=== PATIENT | male | born 1940 | race Caucasian/White ===

== ENCOUNTER → 2016-05-21 | Outpatient (CLI) | payer BC ==
[~2016-05-21] MED LIST: MULT-506 PO
== END | disposition home or self-care (01) ==
LOC: C.LAB 14:57
PROVIDERS: ATTEND Internal Medicine Geriatric Medicine
DX: R94.6 Abnormal results of thyroid function studies (principal)

== ENCOUNTER → 2016-07-21 | Outpatient (CLI) | payer BC ==
[2016-07-21 10:33] LABS: ESTIMATED AVERAGE GLUCOSE 146 mg/dl; HA1C FLAG Normal (Normal)
[2016-07-21 10:36] LABS: BLOOD UREA NITROGEN 17 mg/dl (7-18); BUN/CREATININE RATIO 15.4 (10-20); CARBON DIOXIDE 31 mmol/L (21-32); CHLORIDE 106 mmol/L (98-107); CHOLESTEROL 195 mg/dl (0-200); GLUCOSE 129 mg/dl (70-99); POTASSIUM 4.2 mmol/L (3.5-5.1); SODIUM 141 mmol/L (136-145)
[2016-07-21 11:09] LABS: CHOLESTEROL/HDL RATIO 4.5; HDL CHOLESTEROL 43 mg/dl; LDL CHOLESTEROL CALCULATED 127 mg/dl; TRIGLYCERIDES 126 mg/dl (0-150); VERY LOW DENSITY LIPOPROT CALC 25 mg/dl
== END | disposition home or self-care (01) ==
LOC: C.LAB 09:32
PROVIDERS: ATTEND Internal Medicine Geriatric Medicine
DX: E78.5 Hyperlipidemia, unspecified (principal); R73.9 Hyperglycemia, unspecified

== ENCOUNTER → 2017-02-02 | Outpatient (CLI) | payer BC ==
[2017-02-02 12:38] LABS: ALB/GLOB RATIO 0.9 (0.9-2); ALT/SGPT 29 U/L (12-78); BLOOD UREA NITROGEN 16 mg/dl (7-18); BUN/CREATININE RATIO 15.4 (10-20); CALCIUM 9.1 mg/dl (8.5-10.1); CARBON DIOXIDE 29 mmol/L (21-32); CHLORIDE 108 mmol/L (98-107); CHOLESTEROL 130 mg/dl (0-200); CREATININE 1.06 mg/dl (0.60-1.40); GLUCOSE 121 mg/dl (70-99); POTASSIUM 4.3 mmol/L (3.5-5.1); SODIUM 141 mmol/L (136-145); TRIGLYCERIDES 150 mg/dl (0-150); VERY LOW DENSITY LIPOPROT CALC 30 mg/dl
[2017-02-02 12:45] LABS: ALKALINE PHOSPHATASE 77 U/L (45-117); AST/SGOT 18 U/L (15-37); CHOLESTEROL/HDL RATIO 2.5; HDL CHOLESTEROL 51 mg/dl; LDL CHOLESTEROL CALCULATED 49 mg/dl
[2017-02-02 13:49] LABS: ESTIMATED AVERAGE GLUCOSE 151 mg/dl; HA1C FLAG Normal (Normal)
== END | disposition home or self-care (01) ==
LOC: C.LAB 09:48
PROVIDERS: ATTEND Internal Medicine Geriatric Medicine
DX: E78.5 Hyperlipidemia, unspecified (principal); E11.9 Type 2 diabetes mellitus without complications; R94.6 Abnormal results of thyroid function studies

== ENCOUNTER → 2017-08-11 | Outpatient (CLI) | payer BC ==
[2017-08-11 09:58] LABS: HEMOGLOBIN A1C 7.5 % (4.5-5.6)
[2017-08-11 10:10] LABS: BLOOD UREA NITROGEN 20 mg/dl (7-18); CALCIUM 9.1 mg/dl (8.5-10.1); CARBON DIOXIDE 30 mmol/L (21-32); CREATININE 1.22 mg/dl (0.60-1.40); GLUCOSE 220 mg/dl (70-99); POTASSIUM 4.3 mmol/L (3.5-5.1); SODIUM 137 mmol/L (136-145)
== END | disposition home or self-care (01) ==
LOC: C.LAB 08:47
PROVIDERS: ATTEND Internal Medicine Geriatric Medicine
DX: E78.5 Hyperlipidemia, unspecified (principal); E11.9 Type 2 diabetes mellitus without complications; E03.9 Hypothyroidism, unspecified

== ENCOUNTER 2020-12-18 05:14 | Observation (INO) ==
--- NOTE | 2020-11-13 13:25 | PAT Medication Instructions ---
Medication Instructions Date of Service November 13, 2020 Home Medications Medication Instructions Recorded metformin 500 mg tablet 500 mg PO .COMPLEX #270 tab 07/16/20 metformin 500 mg tablet 500 mg PO .COMPLEX acetaminophen 325 mg tablet (Tylenol) 325 mg PO QID PRN atorvastatin 20 mg tablet (Lipitor) 20 mg PO QAM ibuprofen 200 mg tablet 200 mg PO Q6H PRN levothyroxine 50 mcg tablet 50 mcg PO QAM multivitamin 1 tab PO QAM ASK your surgeon for instructions ibuprofen 200 mg tablet 200 mg PO Q6H PRN DO NOT take the morning of surgery metformin 500 mg tablet 500 mg PO .COMPLEX multivitamin 1 tab PO QAM Take morning of surgery With a small sip of water, OTHERWISE NOTHING TO EAT OR DRINK AFTER MIDNIGHT: acetaminophen 325 mg tablet (Tylenol) 325 mg PO QID PRN (okay to take up to 4 hours prior to surgery if needed) atorvastatin 20 mg tablet (Lipitor) 20 mg PO QAM levothyroxine 50 mcg tablet 50 mcg PO QAM Take evening before surgery metformin 500 mg tablet 500 mg PO .COMPLEX acetaminophen 325 mg tablet (Tylenol) 325 mg PO QID PRN (if needed) Other Notes If you have any questions please call us at [phone] or [phone] or [phone] or [phone]
--- NOTE | 2020-11-18 14:56 | Anesthesiology Consultation ---
Date of Service November 18, 2020 Assessment & Plan (1) Encounter for pre-operative examination: - COVID screening: Per assessment on 11/18: Travel screen- Patient states that he might travel to [facility] to stay at [facility] prior to surgery but that return from travel will be at least 5 days prior to preop COVID testing if it is done. Patient vaccinated. No known COVID-19 positive contacts or current COVID-19 related symptoms. Surgeon arranging preop COVID testing. Awaiting results. - Check BSG AM DOS Chart Review Chart Review: Acceptable Risk for Surgery and Patient seen in Pre Admission Testing Teaching & Discussion Pre-Anesthesia Teaching/Discussion Notes: Instructed NPO after midnight before surgery,except medications with 15 cc of water. Medication instructions provided according to the PAT guidelines. History Surgery Operation Date: 12/18/20 07:00 Proposed Procedures p Left Total Hip Replacement - Jay Jay Madrigal MD Height/Weight Height: 6 ft 1 in Weight: 92.8 kg Allergies Allergy/AdvReac Type Severity Reaction Status Date / Time No Known Allergies Allergy Unverified 11/13/20 12:19 Medications Home Medications Medication Instructions Recorded Confirmed Last Taken blood sugar diagnostic #10 ea 07/12/19 10/04/20 Unknown lancets (Accu-Chek Fastclix Lancet #50 ea 07/12/19 10/04/20 Unknown Drum) metformin 500 mg tablet 500 mg PO .COMPLEX #270 tab 07/16/20 11/13/20 Unknown acetaminophen 325 mg tablet 325 mg PO QID PRN 11/13/20 11/13/20 Unknown (Tylenol) atorvastatin 20 mg tablet (Lipitor) 20 mg PO QAM 11/13/20 11/13/20 Unknown ibuprofen 200 mg tablet 200 mg PO Q6H PRN 11/13/20 11/13/20 Unknown levothyroxine 50 mcg tablet 50 mcg PO QAM 11/13/20 11/13/20 Unknown multivitamin 1 tab PO QAM 11/13/20 11/13/20 Unknown Wheeled Walker #1 ea 11/18/20 11/18/20 Unknown Past Medical History Medical History DM type 2 (diabetes mellitus, type 2) NIDDM HLD (hyperlipidemia) Hypothyroidism Osteoarthritis Exercise / Class Metabolic Activity II 4-5 Yardwork/Stairs/Walk up hill (one FS (no CP, no SOB)) Past Family History Family History Mother Hypothyroidism Other No family history of adverse response to anesthesia Denies family history of Ovarian cancer Prostate cancer Myocardial infarction Breast cancer Lung cancer Colorectal cancer Stroke Past Surgical History Surgical History H/O oral surgery History of colonoscopy S/P tonsillectomy Past Anesthesia History No Hx of Anesthesia Complications and No Family Hx of Anesthesia Complications History of PONV No Hx of PONV and No Hx of Motion Sickness Social History Smoking Status: Never smoker Do You Dip or Chew Tobacco: No Hx Alcohol Use: Yes Alcohol type: beer and wine alcohol intake frequency: a few times a month Hx Substance Use: No substance use type: does not use Review of Systems Patient denies chest pain, shortness of breath, dyspnea on exertion, fever, chills, cough, wheezing, palpitations. Physical Exam Vital Signs VITALS BP 120/73 P 78 TEMP WNL SP02 95%RA RESP 16 PHYSICAL Full cervical extension range of motion. Full TMJ range of motion. TMD 4 finger breaths Mallampati Score (small oral opening) Dentition: +implants, missing molar Lungs: clear throughout to auscultation Cardiac: regular rate and rhythm, no murmurs noted Spine: normal Carotid arteries: negative bruit Extremities: no edema Lab Results Anesthesia Preop Results Results Anesthesia Widget: WBC 6.27 K/uL (4.8-10.8) 11/18/20 Hgb 14.4 g/dL (14.0-18.0) 11/18/20 Hct 42.0 % (42-52) 11/18/20 Plt 222 K/uL (130-400) 11/18/20 Na 136 mmol/L (136-145) 11/18/20 K 4.5 mmol/L (3.5-5.1) 11/18/20 Cl 108 mmol/L (98-107) H 11/18/20 CO2 30 mmol/L (21-32) 11/18/20 BUN 18 mg/dl (7-18) 11/18/20 Creat 1.15 mg/dl (0.6-1.4) 11/18/20 Glucose Level 174 mg/dl (70-99) H 11/18/20 PT 10.0 Seconds (9.0-12.0) 11/18/20 PTT 28.0 Seconds (21.0-31.0) 11/18/20 INR 1.0 (0.9-1.1) 11/18/20 HA1c 7.7 % (4.5-5.6) H 11/18/20 Blood Type A Positive 11/18/20 Antibody Screen NEGATIVE 11/18/20 Testing Electrocardiogram Date: 11/18/20 Findings: + NSR @ (71) Chest X-Ray Date: 11/18/20 FINDINGS: The cardiomediastinal and hilar silhouettes are within normal limits. No pneumothorax, pleural effusion, overt pulmonary edema or lobar airspace consolidation. Chronic reticular interstitial opacities. Degenerative changes of the shoulders and spine. IMPRESSION: Chronic findings as above without acute process.
--- NOTE | 2020-12-13 17:20 | History and Physical Report ---
CHIEF COMPLAINT: Persistent left hip pain and discomfort. HISTORY OF PRESENT ILLNESS: A 80-year-old gentleman from [place] who presents for surgical treat ment of his left hip. He has a several-year history of increasing left hip pain and discomfort. It has gotten worse, particularly over the past year. He used to walk 8-10 miles a day, but cannot walk even a mile now. He has been through therapy, which did not help at all. He was treated at [facility] for a while, and comes here for surgical treatment. He was taking oral medicines without relief. He describes groin pain, thigh pain. Gets worse as day goes on, limps more as the day goes on. He has difficulty putting his shoes and socks on as well. PAST MEDICAL HISTORY: 1. Diabetes. 2. Elevated cholesterol. 3. Hypothyroidism. 4. Hypertension. PAST SURGICAL HISTORY: None. ALLERGIES: ATORVASTATIN. CURRENT MEDICATIONS: 1. Metformin. 2. Levothyroxine. 3. Celebrex. 4. Atorvastatin. SOCIAL HISTORY: A 80-year-old male. He is , one drink per week. Does not smoke. FAMILY HISTORY: Significant for diabetes. REVIEW OF SYSTEMS: Significant for diabetes. Denies any chest pain or shortness of breath. No hist ory of DVT or PE. No known bleeding problems. PHYSICAL EXAMINATION: GENERAL: Shows a healthy, pleasant elderly male. Looks to be in pretty good health. HEENT: Benign. NECK: Supple. No lymphadenopathy. LUNGS: Clear to auscultation. HEART: Has a regular rate and rhythm. ABDOMEN: Soft, nontender, nondistended. EXTREMITIES: Grossly neurovascularly intact except as follows. Examination of the left hip reveals the patient walks with a slight bit of a limp. Leg lengths clini sahara appear pretty equal. He has got very limited hip motion and stiffness and pain with internal r otation. Internal rotation to neutral at best. Negative straight leg raise. No knee effusion. Supriya rologically intact. X-RAYS: X-ray of left hip show advanced left hip DJD. He has got complete loss of superior joint sp kristina. He has got cystic changes on both sides of the joint. He has a fairly significant medial aceta bular osteophyte. ASSESSMENT: A 80-year-old male with advanced left hip degenerative joint disease. He has failed con servative treatment and would like to have his hip fixed. PLAN: We will take him to the operating room and do left total hip replacement. The risks and benef its were explained to the patient including but not limited to DVT, PE, , infection, neurologica l injury, vascular injury, bleeding problem, pain, limited range of motion, stiffness, failure to rel ieve symptoms, incomplete relief of symptoms, need for further surgery in the future, fracture, leg l ength inequality, nerve palsy, etc. The patient understands and desires to proceed. Informed consen t was obtained. He is going to be discharged to home using [facility] program. We will hold his metformin on the morning of surgery. Job ID: [id number]
[2020-12-18] MEDS ORDERED: TRANEXAMIC ACID 1,000 MG **IV Pre-op IV SCH (06:00)
[2020-12-18] MEDS ORDERED: ceFAZolin 2000MG 2,000 MG/15 ML SYR IV SCH (06:00)
[2020-12-18] MEDS ORDERED: FAMOTIDINE 20 MG TAB PO SCH (06:00)
[2020-12-18] MEDS ORDERED: LR 60ML/HR IV SCH (06:00)
[2020-12-18] MEDS ORDERED: GABAPENTIN 300 MG CAP PO SCH (06:00)
[2020-12-18] MEDS ORDERED: METOCLOPRAMIDE HCL 10 MG TABLET PO SCH (06:00)
[2020-12-18] MEDS ORDERED: ACETAMINOPHEN 500 MG TAB PO SCH (06:00)
[2020-12-18] MEDS ORDERED: LR 500ML BOLUS, THEN 15ML/HR IV SCH (06:00)
[2020-12-18] MEDS ORDERED: BUPIVACAINE 0.5 % 5 MG/1 ML PF 10ML VIAL ONE (06:32)
--- NOTE | 2020-12-18 06:55 | History & Physical Bridge Note ---
Date of Service December 18, 2020 History & Physical Bridge Note I have examined the patient, reviewed the History & Physical and in the interval since the performance of the History & Physical I have noted the following changes of clinical significance: no changes noted
[2020-12-18] MEDS ORDERED: ATROPINE SULFATE 0.1 MG/ML 10ML SYR IV PRN (07:15)
[2020-12-18] MEDS ORDERED: ePHEDrine sulfate 50 MG/ML AMP IV PRN ×2 (07:15→10:50)
--- NOTE | 2020-12-18 08:57 | Operative Report ---
Post Operative Report Pre & Post Diagnosis Operation Date: 12/18/20 07:00 Pre-Op Diagnosis: Left Hip Osteoarthritis Post-Op Diagnosis: Left Hip Osteoarthritis I identified the patient and participated in the time-out.: Yes Procedure Operation Date: 12/18/20 07:00 Actual Procedures p Left Total Hip Replacement(Left) - Jay Jay Madrigal MD Surgeon Jay Jay Madrigal MD Tool Builder Nawaf Gardner PA-C Estimated Blood Loss 200 Findings Consistent with Post-Op Diagnosis Operative findings were advanced left hip DJD. Extensive grade 4 [id number]-tl-[id number] disease of the femoral head and acetabulum. Significant acetabular osteophytes. Moderate-sized joint effusion. Fluids 1500 cc Specimens Left femoral head sent for pathology. Drains None. Anesthesia Type Spinal MAC Complications none Disposition Accompanied Patient To Recovery: Yes Indications Patient is a 80-year-old gentleman has had a several year history of increasing left hip pain discomfort is gotten singly worse over the past 6 months. X-rays show advanced left hip arthritis. Failed conservative measures. He elected proceed with left total hip arthroplasty. Description of Procedure Operative implants consist of: 1 Biomet G7 size 58 mm acetabular shell. 2. 6.5 cancellous acetabular screws 135 mm length 125 mm length. 3. Sherwood hole canoe inspector. 4. Highly cross-linked polyethylene liner with a 58 mm outer diameter and 40 mm inner diameter with a redd placed inferior and posterior. 5. [place] size 11 KLA femoral stem. 6. +8.5/40 mm ceramic articular ball. The patient was taken the operating, identified, and placed on the operating table supine position but all contractors were properly padded. IV antibiotics tried by anesthesia team. A spinal anesthetic had been implemented in the holding area. Morris catheter was placed in sterile fashion. The patient then placed in the right lateral decubitus position. An axillary roll was placed. A Stulberg hip positioner was used for positioning. Left hip and leg were then prepped and draped in usual sterile fashion. A posterior lateral approach to the left hip was then performed to a curvilinear incision centered over the greater trochanter. Sharp dissection was carried through subcutaneous tissue down to the IT band gluteal fascia the IT band gluteal fascia/longitudinally in line with skin incision. The underlying greater bursa was excised. The piriformis and external rotators along with the posterior hip joint capsule were then incised and released from the posterior aspect hip joint as a single layer. Great care was taken throughout the procedure protect the sciatic nerve at all times. The hip was internally rotated and dislocated. Femoral neck osteotomy cut was made with Final Cut 15 mm above the lesser trochanter. Femoral head was removed and sent for pathology. The femur was retracted anteriorly. Attention drawn the acetabulum. The acetabular labrum was excised. The pulvinar fat was excised. Sequential reaming the acetabular was then performed again with size 45 and progressing up a 57. I then reamed a little bit with a 58 reamer and placed a 58 mm Biomet G7 acetabular shell in about 40 degrees lateral opening and 20 degrees of anteversion. It was fixed with two 6.5 cancellous acetabular screws. Some anterior osteophytes were removed. A trial liner was placed. Attention drawn the femur. The proximal femur was entered with a cookie-cutter followed by canal finder. I then broached begin the size 8 and progressing up to 11. Got excellent fit and 11. He had good cancellous bone bed we elected to stop there. The calcar reamer was used smooth and off the calcar. Then trialed the hip. The +8.5 articular ball seem to recreate soft tissue tension appropriately and leg lengths equal. Hip was fully stable in full extension and external rotation flexion to 9 degrees internal rotation about 50 degrees. I did elect to place a redd inferior and posterior to maximize his stability in flexion. We elect to place these implants. All trial implants were removed. An apex eliminator was placed. Highly cross- linked polyethylene liner was placed. A size 11 KLA femoral stem was impacted in position. +8.5/40 mm ceramic articular ball was placed. Hip was located once again found to be stable. Attention drawn toward closing. Wounds irrigated scopes also pulsatile lavage solution. I injected locally with 60 cc of half percent Marcaine with epinephrine. The posterior capsule and external rotators were repaired through drill holes in the posterior trochanter with #2 Tycron suture. Upon placing the drill hole for the inferior suture passed drill bit broke off inside the bone. I examined this extensively and I did not feel like it was worth damaging his bone in order to get this out as it was inside the bone and I cannot see it on either side. We did get an x-ray at the end of the case to make sure it was not somewhere else or somewhere more retrievable. The IT band gluteal fascia then closed with #1 PDS suture running fashion. Subcutaneous tissue was then closed with 2 layers of the deep layer #1 Vicryl suture subcutaneous tissues with 2-0 Dexon suture in a buried interrupted fashion. Skin was closed skin ralph. Leg was then cleaned and dried and a sterile dressing both Xeroform, 4 x 4's, sterile ABD pad and foam tape was applied. Of note, we did get an x-ray before closing the skin with ralph in order to make sure this drill bit was not somewhere else. It appeared to be inside the bone as expected and I once again again did not feel the it was appropriate to try and I did this out as it was inside the bone and would create more damage than good. The patient was then transferred to the recovery room in stable condition. Patient tolerated the procedure well and there were no complications. Nawaf Gardner, my physician restaurant assistant, was present for the entire procedure. His assistance was essential and required for appropriate patient positioning, prepping and draping, surgical exposure, performing the technical details of the operation, placement the implants, closure of the wound, and placement of the sterile bandage. I attest to the content of the Intraoperative Record and any orders documented therein. Any exceptions are noted below.
--- NOTE | 2020-12-18 09:24 | Anesthesiology Progress Note ---
Date of Service December 18, 2020 Anesthesia Post Procedure Vital Signs Vital Signs: Temp Pulse Pulse Resp BP BP Pulse Ox 12/18/20 09:15 37.1 C 64 13 106/62 96 12/18/20 09:05 64 16 110/61 100 12/18/20 08:55 65 13 109/56 L 100 12/18/20 08:46 36.4 C L 69 98 H 14 134/82 112/56 L 100 12/18/20 05:33 37.1 C 98 H 20 134/82 99 Pain Intensity Left Hip: Pain Intensity: 2 Transfer of Care Handoff Completed per policy Notes Mental Status: alert / awake / arousable Patient Amnestic to Procedure: Yes Nausea / Vomiting: adequately controlled Pain: adequately controlled Airway Patency, RR, SpO2: stable & adequate BP & HR: stable & adequate Hydration State: stable & adequate Neuraxial Anesthesia: was administered and sensory block is resolving Anesthetic Complications: no major complications apparent
[2020-12-18] MEDS ORDERED: PHARMACY GLYCEMIC MGMT CONSULT PRN (09:46)
[2020-12-18] MEDS ORDERED: ALUMINUM/MAGNESIUM SUSP 30 ML UDC PO PRN (09:46)
[2020-12-18] MEDS ORDERED: traMADol HCL 50 MG TABLET PO PRN (09:46)
[2020-12-18] MEDS ORDERED: ONDANSETRON INJ 2 MG/ML 2 ML VIAL IV PRN ×2 (09:46→10:50)
[2020-12-18] MEDS ORDERED: MAGNESIUM HYDROXIDE SUSP 30 ML UDC PO PRN (09:46)
[2020-12-18] MEDS ORDERED: NALOXONE HCL 0.4 MG/1 ML VIAL/CARP IV PRN ×2 (09:46→10:50)
[2020-12-18] MEDS ORDERED: GLUCOSE 40% GEL 15 GM TUBE PO PRN (09:46)
[2020-12-18] MEDS ORDERED: MULTIVITAMIN TAB PO SCH (09:46)
[2020-12-18] MEDS ORDERED: DEXTROSE 50% 50 ML SYRINGE IV PRN (09:46)
[2020-12-18] MEDS ORDERED: CARBOHYDRATES FOR HYPOGLYCEMIA PO PRN (09:46)
[2020-12-18] MEDS ORDERED: TAMSULOSIN HCL 0.4 MG CAP PO PRN (09:46)
[2020-12-18] MEDS ORDERED: GLUCAGON FOR INJ 1 MG VIAL SQ PRN (09:46)
[2020-12-18] MEDS ORDERED: METOCLOPRAMIDE HCL INJ 5 MG/ML 2 ML VIAL IV PRN (09:46)
[2020-12-18] MEDS ORDERED: GLUCOSE 10 TABS/TUBE PO PRN (09:46)
[2020-12-18] MEDS ORDERED: HYDROmorphone INJ 0.5 MG/0.5 ML SYR IV PRN (09:46)
[2020-12-18] MEDS ORDERED: bisacodyL 10 MG SUPP PR PRN (09:46)
--- NOTE | 2020-12-18 09:46 | Fluoroscopy Report ---
FL hip LT 1V CLINICAL HISTORY: Left total hip arthroplasty. Intraoperative study. COMPARISON STUDY: None. FLUOROSCOPY TIME: 15 second. FINDINGS: 5 fluoroscopic spot images of the left hip were submitted for review. There is a partially visualized left total hip arthroplasty. Hardware appears intact. IMPRESSION: Fluoroscopy provided for left total hip arthroplasty. ACT 112: Negative or not required by law. Electronically signed by: Eduin Laguerre M.D. 12/18/2020 9:45 AM
[2020-12-18] MEDS: SODIUM CHLORIDE 0.9% 1000ML 1,000 ML IV SCH ×2 (10:00→20:02)
--- NOTE | 2020-12-18 10:20 | Pharmacy Report ---
Pharmacy Glycemic Short Note 2 - Date of Service December 18, 2020 - Glycemic Short BSG Results (Last 24 hours): 12/18/20 12/18/20 05:31 08:52 POC Glucose 177 H 160 H OUTPATIENT ANTIDIABETIC REGIMEN: * Metformin 500 mg PO qAM, 1000 mg qPM * HbA1c: 7.7% (12/09/20) ASSESSMENT: * DH is a 80 year old male POD #0 s/p left total hip replacement * No perioperative steroids administered * Preop BSG of 177 mg/dL, postop BSG of 160 mg/dL * Will order one-time ~0.2 unit/kg Lantus and weight-based stress of 2 Novolog PLAN FOR INPATIENT GLYCEMIC CONTROL: * Hold outpatient oral diabetes medications * consider restarting tomorrow * Basal insulin * Lantus 18 units SQ x 1 (~0.2 unit/kg) * Bolus insulin * NovoLog per scale ACHS or Q6hrs while NPO * Goal Range: Low 110 mg/dL - High 140 mg/dL * Correction Factor: 25 mg/dL/unit * Nutritional / Prandial insulin per carb ratio of 1 unit per 8 grams CHO consumed PLAN FOR DISCHARGE: * HbA1c of 7.7% is slightly elevated for patient, reasonable to target less than 7% * Based on past outpatient labs, baseline SCr appears to be ~1.15 mg/dL (eCrCl ~60 mL/min) * Reasonable to increase metformin to 1000 mg PO BIDM
[2020-12-18] MEDS: MULTIVITAMIN TAB PO SCH (10:40)
[2020-12-18] MEDS: DOCUSATE SODIUM 100 MG CAP PO SCH ×2 (10:40→20:03)
[2020-12-18] MEDS: ASPIRIN 81 MG ECTAB PO SCH ×2 (10:41→20:02)
[2020-12-18] MEDS ORDERED: INSULIN GLARGINE SOLOSTAR 100 UNITS/ML 3 ML PEN SC ONE (10:45)
[2020-12-18] MEDS ORDERED: PROMETHAZINE HCL 25 MG in SODIUM CHLORIDE 0.9% 50 ML IV PRN (10:50)
[2020-12-18] MEDS ORDERED: NALBUPHINE HCL INJ 10 MG/ML AMP IV PRN (10:50)
[2020-12-18] MEDS ORDERED: MoRPHine SULFATE PF 1 MG/ML 10 ML AMP/VIAL INT SPINAL ONE (10:50)
[2020-12-18] MEDS ORDERED: diphenhydrAMINE 50 MG/ML VIAL IV PRN (10:50)
[2020-12-18] MEDS ORDERED: LACTATED RINGER'S 500 ML IV PRN (10:50)
[2020-12-18] MEDS ORDERED: NALOXONE HCL 0.08 MG in SYRINGE 1.8 ML IV PRN (10:50)
[2020-12-18] MEDS ORDERED: NALOXONE HCL 1 MG in SODIUM CHLORIDE 0.9% 1000ML 1,000 ML IV PRN (10:50)
[2020-12-18] MEDS ORDERED: NO NARCOTICS OR SEDATIVES SCH (11:00)
[2020-12-18] MEDS ORDERED: SODIUM CHLORIDE 0.9% 1000ML 1,000 ML IV SCH (11:00)
--- NOTE | 2020-12-18 11:25 | XRay Report ---
XR hip 1V LT w pelvis CLINICAL HISTORY: Postoperative evaluation. COMPARISON: Pelvis and left hip radiographs October 22, 2020. FINDINGS: Alignment of the total left hip arthroplasty is anatomic. There is no periprosthetic fract ure. Note is made of a 1.8 cm linear metallic density within the proximal aspect of the remaining por tion of the femur. This has a braided appearance. There are skin ralph. IMPRESSION: 1. No periprosthetic fracture. Anatomic alignment of the total left hip arthroplasty. 1. 1.8 cm linear metallic density within the proximal left femur which reflects a portion of a drill bit. Discussed with Dr. Madrigal at time of dictation. ACT 112: Negative or not required by law. Electronically signed by: Gordon Beal M.D. 12/18/2020 11:23 AM
[2020-12-18] MEDS: KETOROLAC TROMETHAMINE 15 MG/ML VIAL IV SCH ×3 (11:45→22:53)
[2020-12-18] MEDS: LEVOTHYROXINE SODIUM 50 MCG TABLET PO SCH (11:55)
[2020-12-18] MEDS: ATORVASTATIN 20 MG TAB PO SCH (11:55)
[2020-12-18] MEDS: INSULIN ASPART 100 UNITS/ML 3 ML PEN SC SCH ×3 (12:34→20:48)
[2020-12-18] MEDS: ceFAZolin 2000MG 2,000 MG/15 ML SYR IV SCH ×2 (13:08→22:53)
[2020-12-18] MEDS: ACETAMINOPHEN 500 MG TAB PO SCH ×2 (13:09→20:51)
[2020-12-18] MEDS ORDERED: TRANEXAMIC ACID / 0.7% NACL 1,000 MG/100 ML BAG IV SCH (14:45)
[2020-12-18] MEDS: ASCORBIC ACID 500 MG TAB PO SCH (16:52)
--- NOTE | 2020-12-18 17:38 | Progress Notes ---
DATE OF SERVICE: 12/18/2020 SUBJECTIVE: A 80-year-old gentleman postop from a left total hip replacement. He is doing well. Re ally not having any pain yet. No chest pain or shortness of breath. Not feeling dizzy or lightheade d. He says he feels great. OBJECTIVE: VITAL SIGNS: Temperature 36.4. Vital signs are stable. GENERAL: Shows a pleasant, elderly male. He is sitting up in bed and looks comfortable watching TV. LUNGS: Clear to auscultation. HEART: Regular rate and rhythm. ABDOMEN: Soft, nontender, nondistended. EXTREMITIES: Grossly neurovascularly intact except as follows: Examination of the left hip reveals the dressing to be clean, dry and intact. Leg lengths are equal. Hip is located. Thigh is soft and supple. He can dorsiflex and plantarflex his foot appropriately. He is neurologically intact. X-RAYS: X-rays of the left hip from recovery room are reviewed. It shows a left uncemented total hi p arthroplasty. Components looked to be in good position. No signs of problems. There is a drill b it, which we knew about that broke within the bone. Clearly within the confines of the bone, only se en on the lateral film. ASSESSMENT: A 80-year-old gentleman, postoperative from a left hip replacement, doing well. His hip is located. Pain is controlled. He is neurologically intact. There was a drill bit that broke off inside the bone and I did not feel it was worth trying to dig that out. I did talk to him at length about that in his room this afternoon and made him fully aware. This should not affect his outcome. It is extremely unlikely this would ever dislodge from the bone and explained to him that I did not feel it was worth compromising the bone to try and dig it out. He had a complete understanding of t he situation. PLAN: 1. DVT prophylaxis includes thigh-high TEDs, SCDs, and aspirin twice a day. 2. PT, OT, weightbear as tolerated. Left total hip protocol. 3. Pain control, doing well with current pain regimen. We will have to adjust his pain medicine as the spinal wears off. 4. IV antibiotics x24 hours. 5. Disposition: Plan to discharge home with some home health once adequately recovered and medicall y stable. Job ID: [id number]
[2020-12-18] MEDS ORDERED: SENNA 8.6 MG TAB PO SCH (21:00)
[2020-12-19] MEDS ORDERED: DC INTRASPINAL MORPHINE ONE (04:50)
[2020-12-19] MEDS: ACETAMINOPHEN 500 MG TAB PO SCH (05:03)
[2020-12-19] MEDS: KETOROLAC TROMETHAMINE 15 MG/ML VIAL IV SCH ×2 (05:08→10:46)
[2020-12-19] MEDS: LEVOTHYROXINE SODIUM 50 MCG TABLET PO SCH (05:15)
[2020-12-19 06:10] LABS: Basophils # (auto) 0.02 K/uL (0-0.2); Basophils % (auto) 0.2 %; Eosinophils # (auto) 0.33 K/uL (0-0.5); Eosinophils % (auto) 3.8 %; Hematocrit (blood only) 33.7 % (42-52); Hemoglobin 11.2 g/dL (14.0-18.0); Immature Granulocytes # (auto) 0.02 K/uL (0.00-0.02); Immature Granulocytes % (auto) 0.2 %; Lymphocytes # (auto) 1.68 K/uL (1.2-3.4); Lymphocytes % (auto) 19.4 %; Mean Corpuscular Hemoglobin 31.7 pg (25-34); Mean Corpuscular Hgb Conc 33.2 g/dL (32-36); Mean Corpuscular Volume 95.5 fL (80-100); Mean Platelet Volume 8.6 fL (7.4-10.4); Monocytes # (auto) 1.08 K/uL (0.11-0.59); Monocytes % (auto) 12.5 %; Neutrophils # (auto) 5.53 K/uL (1.4-6.5); Neutrophils % (auto) 63.9 %; Platelet Count 152 K/uL (130-400); RDW Coefficient of Variation 12.6 % (11.5-14.5); RDW Standard Deviation 43.6 fL (36.4-46.3); Red Blood Count 3.53 M/uL (4.7-6.1); White Blood Count 8.66 K/uL (4.8-10.8)
[2020-12-19 06:41] LABS: BUN Creatinine Ratio 17.4 (10-20); Calcium 7.7 mg/dl (8.5-10.1); Creatinine Clr Calc Pharmacy 59.8 ml/min; Est GFR (African American) 70.3 ml/min; Est GFR (Non-African American) 60.6 ml/min; Potassium 4.1 mmol/L (3.5-5.1)
[2020-12-19] MEDS ORDERED: metFORMIN HCL 500 MG TAB PO SCH ×2 (07:30→16:30)
[2020-12-19] MEDS: ATORVASTATIN 20 MG TAB PO SCH (07:48)
[2020-12-19] MEDS: MULTIVITAMIN TAB PO SCH (07:48)
[2020-12-19] MEDS: ASCORBIC ACID 500 MG TAB PO SCH (07:48)
[2020-12-19] MEDS: DOCUSATE SODIUM 100 MG CAP PO SCH (07:48)
[2020-12-19] MEDS: ASPIRIN 81 MG ECTAB PO SCH (07:49)
[2020-12-19] MEDS: INSULIN ASPART 100 UNITS/ML 3 ML PEN SC SCH ×2 (08:17→12:58)
--- NOTE | 2020-12-19 08:44 | Progress Notes ---
DATE OF NOTE: 12/19/2020. SUBJECTIVE: A 80-year-old gentleman postoperative day 1 from a left hip replacement. He is doing we ll. He had good night. No chest pain or shortness of breath. Not feeling dizzy or lightheaded. Pa in is well controlled. OBJECTIVE: VITAL SIGNS: Temperature 36.6. Vital signs are stable. GENERAL: Physical examination shows a pleasant, elderly male. I did wake him this morning. EXTREMITIES: Examination of the left hip reveals the leg lengths to be equal. Dressing is clean, dr y and intact. Thigh is soft and supple. Hip is located. He is neurologically intact. LABORATORY DATA: Hemoglobin 11.2. Hematocrit 33.7. Electrolytes are stable. ASSESSMENT: A 80-year-old gentleman postoperative day 1 from left hip replacement, doing well. Pain is controlled. Hip is located. He is neurologically intact. PLAN: 1. DVT prophylaxis include thigh-high TEDs, SCDs, and aspirin twice a day. 2. PT, OT, weightbear as tolerated. Left total hip protocol. 3. Pain control, doing well with current pain regimen. 4. Disposition: Plan to discharge to home with home health likely later today if does okay in [place]. Job ID: [id number]
--- NOTE | 2020-12-27 13:16 | Discharge Summary ---
Date of Service December 27, 2020 Discharge Data Procedures Performed Operation Date: 12/18/20 07:00 Actual Procedures p Left Total Hip Replacement(Left) - Jay Jay Madrigal MD Hospital Course (1) Status post total hip replacement, left: Elpidio is a 80 year old patient admitted on 12/18/20 and underwent total hip arthroplasty. He tolerated the procedure well and there were no complications. Transferred to the PACU post op and later to the orthopedic floor for further care. He was given ancef for antibiotic prophylaxis. He was also given DAVIE stockings, SCDs, and aspirin for DVT prophylaxis. Hemoglobin, hematocrit, and vital signs were monitored during his hospital stay and remained stable. Did not require any blood transfusions. There were no complications during his hospital stay. By post op day #1 the patient was tolerating a diabetic diet, pain was reasonably controlled with oral pain medicine, and he was participating in physical therapy. On post op day #1 the patient was discharged home and set up with home health care. He was given printed discharge instructions including prescriptions for extra strength tylenol, aspirin, and tramadol. Continue physical therapy, weight bearing as tolerated. Continue hip precautions. Continue DAVIE stockings. Follow up approximately 2 weeks post op or sooner if there are problems or concerns. Coding Level of Care Code None Diagnoses Status post total hip replacement, left Z96.642
== END 2020-12-19 14:00 | disposition home health service (06) ==
LOC: ASU 05:14 → 3E 05:14